=== PATIENT | female | born 1980 | race Caucasian/White ===

== ENCOUNTER 2016-09-20 04:11 | Emergency (ER) | payer SELFPAY ==
[~2016-09-20] VITALS: Ht 167.6 cm; Wt 86.6 kg
[~2016-09-20 04:11] MED LIST: BENTYL10 MG PO; CIPRO500 MG PO; HYDROCODON-ACE1 EAC7 PO; ORTHO TRI-CY1 TABLE1 PO; ROBITUSSIN AC,T10 ML PO
[2016-09-20 06:06] LABS: HEMATOCRIT 37.2 % (36.0-46.0); MCH 30.5 PG (29.0-34.0); MCHC 32.5 G/DL (30.0-36.0); MCV 93.7 FL (83-99); PLATELET COUNT 297 K/uL (156-360); RED BLOOD COUNT 3.97 M/uL (3.80-5.20); WHITE BLOOD COUNT 10.7 K/uL (4.1-10.2)
[2016-09-20 06:34] LABS: ADD MIUA? YES; BILIRUBIN NEGATIVE; BLOOD LARGE; COLOR YELLOW ((YELLOW)); GLUCOSE (STRIP) NEGATIVE; KETONES NEGATIVE; LEUKOCYTES NEGATIVE; NITRITE NEGATIVE; PROTEIN (STRIP) 30; UROBILINOGEN 0.2 MG/DL (0.2-1.0)
[2016-09-20 06:51] LABS: BACTERIA RARE /HPF; EPITHELIAL CELLS 1+ /HPF; MUCUS TRACE /LPF; RED BLOOD CELLS TNTC /HPF (0-5); UCUL ADDED? NO; WHITE BLOOD CELLS NONE SEEN /HPF (0-5)
[2016-09-20 07:59] VITALS: BP 121/75
== END 2016-09-20 08:00 | disposition home or self-care (01) ==
LOC: EME 04:11
DX: O20.0 Threatened abortion (principal); O99.331 Smoking (tobacco) complicating pregnancy, first trimester; O09.521 Supervision of elderly multigravida, first trimester; Z3A.01 Less than 8 weeks gestation of pregnancy; F17.200 Nicotine dependence, unspecified, uncomplicated
CPT/HCPCS: 81003; 84702; 85027; 86850; 86900; 86901; 99281; 99284